=== PATIENT | male | born 1935 | race Caucasian/White ===

== ENCOUNTER 2023-05-10 15:08 | Inpatient (IN) ==
[2023-05-10] MEDS ORDERED: IOPAMIDOL 100 ML BOTTLE IV ONE (15:09)
[2023-05-10] MEDS ORDERED: 0.9 % SODIUM CHLORIDE 1,000 ML IV ONE (16:37)
[2023-05-10 17:28] LABS: Basophils # (Auto) 0.02 K/mcL (0.00-0.30); Basophils % (Auto) 0.2 % (0.0-2.0); Eosinophils # (Auto) 0.01 K/mcL (0.00-0.70); Eosinophils % (Auto) 0.1 % (0.0-7.0); Hematocrit 38.6 % (40.1-51.0); Hemoglobin 11.3 g/dL (13.7-17.5); Lymphocytes # (Auto) 0.63 K/mcL (1.50-4.80); Lymphocytes % (Auto) 5.2 % (15.5-49.0); Mean Corpuscular HGB Conc 29.3 g/dL (31.0-36.0); Mean Platelet Volume 11.1 fL (8.8-12.5); Monocytes # (Auto) 0.55 K/mcL (0.10-0.90); Monocytes % (Auto) 4.5 % (1.0-12.0); Neutrophils % (Auto) 89.5 % (38.0-78.0); Platelet Count 225 K/mcL (140-440); RBC 4.65 M/mcL (4.63-6.08); Red Cell Distribution Width 17.2 % (11.5-14.5); WBC 12.2 K/mcL (4.5-11.0)
[2023-05-10] MEDS ORDERED: methylPREDNISolone SOD SUCC 125 MG/2 ML VIAL IV ONE (17:34)
[2023-05-10] MEDS ORDERED: IPRATROPIUM/ALBUTEROL 3 ML AMPUL.NEB NEB ONE (17:34)
[2023-05-10 17:38] LABS: INR 1.1 (0.9-1.1); Prothrombin Time 14.2 sec (11.9-14.5)
[2023-05-10] MEDS ORDERED: cefTRIAXone 1 GM VIAL IV ONE (17:41)
[2023-05-10] MEDS ORDERED: AZITHROMYCIN 500 MG in DEXTROSE 5% IN WATER 250 ML IV SCH (17:45)
[2023-05-10 18:11] LABS: ALT/SGPT 6 U/L (<40); AST/SGOT 15 U/L (<40); Albumin 3.2 gm/dL (3.2-5.2); Alkaline Phosphatase 68 U/L (39-117); Bilirubin,Direct 0.4 mg/dL (<0.3); Bilirubin,Total 1.1 mg/dL (0.1-1.0); Globulin 4.3 gm/dL (2.2-3.7)
[2023-05-10 18:29] LABS: ALT/SGPT 6 U/L (<40); AST/SGOT 15 U/L (<40); Albumin 3.1 gm/dL (3.2-5.2); Albumin/Globulin Ratio 0.7 (1.0-2.3); Alkaline Phosphatase 68 U/L (39-117); Bilirubin,Total 1.1 mg/dL (0.1-1.0); Blood Urea Nitrogen 14 mg/dL (8-23); Calcium 9.3 mg/dL (8.6-10.4); Carbon Dioxide 29 mmol/L (22-30); Chloride 100 mmol/L (96-108); Globulin 4.4 gm/dL (2.2-3.7); Glomerular Filtration Rate 68; Glucose 123 mg/dL (70-105)
[2023-05-10] MEDS ORDERED: FUROSEMIDE 20 MG/2 ML VIAL IV ONE ×2 (18:36→23:48)
[2023-05-10] MEDS ORDERED: ACETAMINOPHEN 325 MG TABLET PO PRN (21:05)
[2023-05-10] MEDS ORDERED: LACTULOSE 20 GM/30 ML ORAL.SOL PO PRN (21:05)
[2023-05-10] MEDS ORDERED: ONDANSETRON 4 MG/2 ML VIAL IV PRN (21:05)
[2023-05-10] MEDS ORDERED: SENNOSIDES 1 TABLET PO PRN (21:05)
[2023-05-10] MEDS: DOCUSATE SODIUM 100 MG CAPSULE PO SCH (23:51)
[2023-05-11] MEDS: FUROSEMIDE 20 MG/2 ML VIAL IV SCH ×3 (00:06→16:28)
[2023-05-11] MEDS: 0.9 % SODIUM CHLORIDE 10 ML SYRINGE IV SCH ×4 (00:07→20:43)
[2023-05-11] MEDS: APIXABAN 5 MG TABLET PO SCH ×3 (00:15→20:43)
[2023-05-11 07:07] LABS: ALT/SGPT 5 U/L (<40); AST/SGOT 14 U/L (<40); Albumin 2.8 gm/dL (3.2-5.2); Albumin/Globulin Ratio 0.7 (1.0-2.3); Alkaline Phosphatase 61 U/L (39-117); Bilirubin,Direct 0.3 mg/dL (<0.3); Bilirubin,Total 0.7 mg/dL (0.1-1.0); Blood Urea Nitrogen 13 mg/dL (8-23); Calcium 8.6 mg/dL (8.6-10.4); Carbon Dioxide 30 mmol/L (22-30); Chloride 98 mmol/L (96-108); Globulin 3.9 gm/dL (2.2-3.7); Glomerular Filtration Rate 81; Glucose 147 mg/dL (70-105); Lactate Dehydrogenase 173 U/L (135-225); Phosphorous 4.7 mg/dL (2.5-4.5); Triglycerides 60 mg/dL (<150); Uric Acid 9.5 mg/dL (2.5-8.0)
[2023-05-11 07:09] LABS: Thyroid Stimulating Hormone 0.57 uIU/mL (0.27-5.01)
[2023-05-11] MEDS: DOCUSATE SODIUM 100 MG CAPSULE PO SCH ×3 (07:56→20:47)
[2023-05-11] MEDS: METOPROLOL SUCCINATE 25 MG TAB.XL.24H PO SCH (09:58)
[2023-05-11] MEDS: traMADol 50 MG TABLET PO PRN (12:06)
[2023-05-11 13:20] LABS: Basophils # (Auto) 0 K/mcL (0.00-0.30); Basophils % (Auto) 0 % (0.0-2.0); Eosinophils # (Auto) 0 K/mcL (0.00-0.70); Eosinophils % (Auto) 0 % (0.0-7.0); Hematocrit 36.7 % (40.1-51.0); Hemoglobin 10.6 g/dL (13.7-17.5); Lymphocytes # (Auto) 0.36 K/mcL (1.50-4.80); Lymphocytes % (Auto) 3.5 % (15.5-49.0); Mean Cell Volume 84.8 fL (80.0-100.0); Mean Corpuscular HGB Conc 28.9 g/dL (31.0-36.0); Mean Platelet Volume 11.5 fL (8.8-12.5); Monocytes # (Auto) 0.11 K/mcL (0.10-0.90); Monocytes % (Auto) 1.1 % (1.0-12.0); Neutrophils % (Auto) 94.9 % (38.0-78.0); Platelet Count 190 K/mcL (140-440); RBC 4.33 M/mcL (4.63-6.08); Red Cell Distribution Width 17.2 % (11.5-14.5); WBC 10.2 K/mcL (4.5-11.0)
[2023-05-12 06:44] LABS: Basophils # (Auto) 0.01 K/mcL (0.00-0.30); Basophils % (Auto) 0.1 % (0.0-2.0); Eosinophils # (Auto) 0 K/mcL (0.00-0.70); Eosinophils % (Auto) 0 % (0.0-7.0); Hematocrit 34.4 % (40.1-51.0); Hemoglobin 9.9 g/dL (13.7-17.5); Lymphocytes % (Auto) 11.1 % (15.5-49.0); Mean Cell Volume 83.9 fL (80.0-100.0); Mean Corpuscular HGB Conc 28.8 g/dL (31.0-36.0); Mean Platelet Volume 11.4 fL (8.8-12.5); Monocytes # (Auto) 0.55 K/mcL (0.10-0.90); Monocytes % (Auto) 6.8 % (1.0-12.0); Neutrophils % (Auto) 81.4 % (38.0-78.0); Platelet Count 215 K/mcL (140-440); Red Cell Distribution Width 16.8 % (11.5-14.5); WBC 8.1 K/mcL (4.5-11.0)
[2023-05-12 06:54] LABS: ALT/SGPT 6 U/L (<40); AST/SGOT 12 U/L (<40); Albumin 2.7 gm/dL (3.2-5.2); Albumin/Globulin Ratio 0.7 (1.0-2.3); Alkaline Phosphatase 54 U/L (39-117); Bilirubin,Direct 0.2 mg/dL (<0.3); Bilirubin,Total 0.5 mg/dL (0.1-1.0); Blood Urea Nitrogen 20 mg/dL (8-23); Calcium 8.9 mg/dL (8.6-10.4); Carbon Dioxide 32 mmol/L (22-30); Chloride 99 mmol/L (96-108); Globulin 3.8 gm/dL (2.2-3.7); Glomerular Filtration Rate 81; Glucose 91 mg/dL (70-105); Lactate Dehydrogenase 151 U/L (135-225); Phosphorous 3.4 mg/dL (2.5-4.5); Triglycerides 83 mg/dL (<150); Uric Acid 10.2 mg/dL (2.5-8.0)
[2023-05-12] MEDS: FUROSEMIDE 20 MG/2 ML VIAL IV SCH ×2 (08:04→16:15)
[2023-05-12] MEDS: 0.9 % SODIUM CHLORIDE 10 ML SYRINGE IV SCH ×4 (08:04→21:12)
[2023-05-12] MEDS: DOCUSATE SODIUM 100 MG CAPSULE PO SCH ×2 (08:32→19:30)
[2023-05-12] MEDS: APIXABAN 5 MG TABLET PO SCH ×2 (08:32→19:30)
[2023-05-12] MEDS: METOPROLOL SUCCINATE 25 MG TAB.XL.24H PO SCH (08:32)
[2023-05-12] MEDS: traMADol 50 MG TABLET PO PRN ×2 (11:27→19:30)
[2023-05-12] MEDS ORDERED: FUROSEMIDE 20 MG/2 ML VIAL IV ONE ×2 (12:30→13:45)
[2023-05-13 06:44] LABS: Basophils # (Auto) 0.01 K/mcL (0.00-0.30); Basophils % (Auto) 0.1 % (0.0-2.0); Eosinophils # (Auto) 0.07 K/mcL (0.00-0.70); Eosinophils % (Auto) 0.9 % (0.0-7.0); Hematocrit 37.9 % (40.1-51.0); Hemoglobin 10.8 g/dL (13.7-17.5); Lymphocytes # (Auto) 0.88 K/mcL (1.50-4.80); Lymphocytes % (Auto) 11.7 % (15.5-49.0); Mean Cell Volume 85.6 fL (80.0-100.0); Mean Corpuscular HGB Conc 28.5 g/dL (31.0-36.0); Mean Platelet Volume 10.8 fL (8.8-12.5); Monocytes # (Auto) 0.51 K/mcL (0.10-0.90); Monocytes % (Auto) 6.8 % (1.0-12.0); Platelet Count 218 K/mcL (140-440); RBC 4.43 M/mcL (4.63-6.08); WBC 7.5 K/mcL (4.5-11.0)
[2023-05-13 07:07] LABS: ALT/SGPT 7 U/L (<40); AST/SGOT 16 U/L (<40); Albumin 2.7 gm/dL (3.2-5.2); Albumin/Globulin Ratio 0.7 (1.0-2.3); Alkaline Phosphatase 57 U/L (39-117); Bilirubin,Direct 0.2 mg/dL (<0.3); Bilirubin,Total 0.5 mg/dL (0.1-1.0); Blood Urea Nitrogen 20 mg/dL (8-23); Calcium 8.8 mg/dL (8.6-10.4); Carbon Dioxide 35 mmol/L (22-30); Chloride 99 mmol/L (96-108); Globulin 3.9 gm/dL (2.2-3.7); Glomerular Filtration Rate 81; Glucose 88 mg/dL (70-105); Lactate Dehydrogenase 180 U/L (135-225); Phosphorous 3.1 mg/dL (2.5-4.5); Triglycerides 90 mg/dL (<150); Uric Acid 10.9 mg/dL (2.5-8.0)
[2023-05-13] MEDS: FUROSEMIDE 20 MG/2 ML VIAL IV SCH ×3 (11:20→16:19)
[2023-05-13] MEDS: METOPROLOL SUCCINATE 25 MG TAB.XL.24H PO SCH (11:20)
[2023-05-13] MEDS: DOCUSATE SODIUM 100 MG CAPSULE PO SCH ×2 (11:21→21:38)
[2023-05-13] MEDS: 0.9 % SODIUM CHLORIDE 10 ML SYRINGE IV SCH ×3 (11:21→21:38)
[2023-05-13] MEDS: APIXABAN 5 MG TABLET PO SCH ×2 (11:21→21:38)
[2023-05-13] MEDS: traMADol 50 MG TABLET PO PRN ×2 (11:23→21:50)
[2023-05-14] MEDS: 0.9 % SODIUM CHLORIDE 10 ML SYRINGE IV SCH ×3 (05:50→20:50)
[2023-05-14 06:39] LABS: Basophils # (Auto) 0.01 K/mcL (0.00-0.30); Basophils % (Auto) 0.1 % (0.0-2.0); Eosinophils # (Auto) 0.16 K/mcL (0.00-0.70); Eosinophils % (Auto) 2.3 % (0.0-7.0); Hematocrit 35.4 % (40.1-51.0); Hemoglobin 10.2 g/dL (13.7-17.5); Lymphocytes # (Auto) 0.75 K/mcL (1.50-4.80); Lymphocytes % (Auto) 10.8 % (15.5-49.0); Mean Cell Volume 84.9 fL (80.0-100.0); Mean Corpuscular HGB Conc 28.8 g/dL (31.0-36.0); Monocytes % (Auto) 7.2 % (1.0-12.0); Neutrophils % (Auto) 79.2 % (38.0-78.0); Platelet Count 196 K/mcL (140-440); RBC 4.17 M/mcL (4.63-6.08); Red Cell Distribution Width 17.1 % (11.5-14.5)
[2023-05-14 07:00] LABS: ALT/SGPT 7 U/L (<40); AST/SGOT 13 U/L (<40); Albumin 2.6 gm/dL (3.2-5.2); Albumin/Globulin Ratio 0.7 (1.0-2.3); Alkaline Phosphatase 52 U/L (39-117); Bilirubin,Direct 0.2 mg/dL (<0.3); Bilirubin,Total 0.6 mg/dL (0.1-1.0); Blood Urea Nitrogen 15 mg/dL (8-23); Calcium 8.4 mg/dL (8.6-10.4); Carbon Dioxide 33 mmol/L (22-30); Chloride 96 mmol/L (96-108); Globulin 3.5 gm/dL (2.2-3.7); Glomerular Filtration Rate 91; Glucose 94 mg/dL (70-105); Lactate Dehydrogenase 156 U/L (135-225); Phosphorous 2.6 mg/dL (2.5-4.5); Triglycerides 84 mg/dL (<150); Uric Acid 10.3 mg/dL (2.5-8.0)
[2023-05-14] MEDS: FUROSEMIDE 20 MG/2 ML VIAL IV SCH ×2 (07:59→16:49)
[2023-05-14] MEDS: METOPROLOL SUCCINATE 25 MG TAB.XL.24H PO SCH (08:00)
[2023-05-14] MEDS: DOCUSATE SODIUM 100 MG CAPSULE PO SCH ×3 (08:00→20:31)
[2023-05-14] MEDS: APIXABAN 5 MG TABLET PO SCH ×2 (08:00→20:50)
[2023-05-14] MEDS: traMADol 50 MG TABLET PO PRN (10:33)
[2023-05-14] MEDS ORDERED: FUROSEMIDE 40 MG/4 ML VIAL IV ONE ×2 (12:30→16:40)
[2023-05-15 06:40] LABS: Basophils # (Auto) 0.03 K/mcL (0.00-0.30); Basophils % (Auto) 0.4 % (0.0-2.0); Eosinophils # (Auto) 0.25 K/mcL (0.00-0.70); Eosinophils % (Auto) 3.2 % (0.0-7.0); Hematocrit 36.3 % (40.1-51.0); Hemoglobin 10.4 g/dL (13.7-17.5); Lymphocytes # (Auto) 0.85 K/mcL (1.50-4.80); Lymphocytes % (Auto) 10.9 % (15.5-49.0); Mean Cell Volume 83.8 fL (80.0-100.0); Mean Corpuscular HGB Conc 28.7 g/dL (31.0-36.0); Mean Platelet Volume 10.7 fL (8.8-12.5); Monocytes % (Auto) 6.4 % (1.0-12.0); Neutrophils % (Auto) 78.6 % (38.0-78.0); Platelet Count 213 K/mcL (140-440); RBC 4.33 M/mcL (4.63-6.08); Red Cell Distribution Width 16.8 % (11.5-14.5); WBC 7.8 K/mcL (4.5-11.0)
[2023-05-15] MEDS: 0.9 % SODIUM CHLORIDE 10 ML SYRINGE IV SCH ×3 (07:06→20:10)
[2023-05-15 07:16] LABS: ALT/SGPT 7 U/L (<40); AST/SGOT 14 U/L (<40); Albumin 2.6 gm/dL (3.2-5.2); Albumin/Globulin Ratio 0.7 (1.0-2.3); Alkaline Phosphatase 56 U/L (39-117); Bilirubin,Direct 0.2 mg/dL (<0.3); Bilirubin,Total 0.7 mg/dL (0.1-1.0); Blood Urea Nitrogen 15 mg/dL (8-23); Calcium 8.7 mg/dL (8.6-10.4); Carbon Dioxide 33 mmol/L (22-30); Chloride 92 mmol/L (96-108); Globulin 3.7 gm/dL (2.2-3.7); Glomerular Filtration Rate 91; Glucose 96 mg/dL (70-105); Lactate Dehydrogenase 172 U/L (135-225); Phosphorous 2.4 mg/dL (2.5-4.5); Triglycerides 79 mg/dL (<150); Uric Acid 10.3 mg/dL (2.5-8.0)
[2023-05-15] MEDS ORDERED: POTASSIUM CHLORIDE 20 MEQ TABLET PO ONE (08:00)
[2023-05-15] MEDS: METOPROLOL SUCCINATE 25 MG TAB.XL.24H PO SCH (08:43)
[2023-05-15] MEDS: FUROSEMIDE 20 MG/2 ML VIAL IV SCH ×3 (08:43→17:05)
[2023-05-15] MEDS: DOCUSATE SODIUM 100 MG CAPSULE PO SCH ×2 (08:43→20:11)
[2023-05-15] MEDS: APIXABAN 5 MG TABLET PO SCH ×2 (08:43→20:10)
[2023-05-15] MEDS ORDERED: FUROSEMIDE 20 MG/2 ML VIAL IV ONE (11:57)
[2023-05-15] MEDS: traMADol 50 MG TABLET PO PRN (12:25)
[2023-05-15] MEDS: POTASSIUM CHLORIDE 20 MEQ TABLET PO SCH (17:05)
[2023-05-16 07:11] LABS: Basophils # (Auto) 0.03 K/mcL (0.00-0.30); Basophils % (Auto) 0.3 % (0.0-2.0); Eosinophils # (Auto) 0.21 K/mcL (0.00-0.70); Eosinophils % (Auto) 2.4 % (0.0-7.0); Hematocrit 35.9 % (40.1-51.0); Hemoglobin 10.4 g/dL (13.7-17.5); Lymphocytes # (Auto) 1.03 K/mcL (1.50-4.80); Lymphocytes % (Auto) 11.7 % (15.5-49.0); Mean Cell Volume 84.1 fL (80.0-100.0); Mean Platelet Volume 10.9 fL (8.8-12.5); Monocytes # (Auto) 0.63 K/mcL (0.10-0.90); Monocytes % (Auto) 7.1 % (1.0-12.0); Platelet Count 217 K/mcL (140-440); RBC 4.27 M/mcL (4.63-6.08); Red Cell Distribution Width 17.1 % (11.5-14.5); WBC 8.8 K/mcL (4.5-11.0)
[2023-05-16] MEDS: traMADol 50 MG TABLET PO PRN (07:45)
[2023-05-16] MEDS: 0.9 % SODIUM CHLORIDE 10 ML SYRINGE IV SCH (07:47)
[2023-05-16 07:48] LABS: ALT/SGPT 7 U/L (<40); AST/SGOT 19 U/L (<40); Albumin 2.8 gm/dL (3.2-5.2); Albumin/Globulin Ratio 0.8 (1.0-2.3); Alkaline Phosphatase 56 U/L (39-117); Bilirubin,Direct < 0.2 mg/dL (0-0.3); Bilirubin,Total 0.7 mg/dL (0.1-1.0); Blood Urea Nitrogen 15 mg/dL (8-23); Calcium 8.8 mg/dL (8.6-10.4); Carbon Dioxide 37 mmol/L (22-30); Chloride 94 mmol/L (96-108); Globulin 3.7 gm/dL (2.2-3.7); Glomerular Filtration Rate 85; Glucose 100 mg/dL (70-105); Lactate Dehydrogenase 236 U/L (135-225); Triglycerides 73 mg/dL (<150); Uric Acid 10.2 mg/dL (2.5-8.0)
[2023-05-16] MEDS: APIXABAN 5 MG TABLET PO SCH (08:56)
[2023-05-16] MEDS: FUROSEMIDE 20 MG/2 ML VIAL IV SCH (08:56)
[2023-05-16] MEDS: POTASSIUM CHLORIDE 20 MEQ TABLET PO SCH (08:57)
[2023-05-16] MEDS: DOCUSATE SODIUM 100 MG CAPSULE PO SCH (08:58)
[2023-05-16] MEDS: METOPROLOL SUCCINATE 25 MG TAB.XL.24H PO SCH (08:58)
[2023-05-16] MEDS ORDERED: PHOSPHORUS 250 MG TABLET PO SCH (21:00)
[2023-05-16] MEDS ORDERED: MAGNESIUM OXIDE 400 MG TABLET PO SCH (21:00)
== END 2023-05-16 11:45 | DRG 291 ==
LOC: ED 15:08 → ICU 20:47 → MEDSUR 05-14 11:35
PROVIDERS: ADMIT Internal Medicine; ATTEND Internal Medicine Critical Care Medicine